=== PATIENT | male | born 1965 | race Caucasian/White ===

== ENCOUNTER → 2016-09-30 | Outpatient (CLI) | payer BC | LOC: COL.CARD 07:27 | DX: I49.9 Cardiac arrhythmia, unspecified (principal); R00.2 Palpitations ==

== ENCOUNTER → 2016-10-06 | Outpatient (CLI) | payer BC | LOC: COL.VAS 09:00 | DX: I08.1 Rheumatic disorders of both mitral and tricuspid valves (principal); I48.91 Unspecified atrial fibrillation ==

== ENCOUNTER 2016-12-20 10:00 | Inpatient (IN) | payer BC ==
[~2016-12-20] VITALS: Ht 177.8 cm; Wt 102.6 kg
[2016-12-21] MEDS ORDERED: ELIQUIS 5MG PO (08:55)
[2016-12-21] MEDS ORDERED: EPIPEN 2-PAK1 MG/ML IM (08:56)
[2016-12-21] MEDS ORDERED: FLONASEALLERGY NS (08:56)
[2016-12-21] MEDS ORDERED: TOPROL XL 25MG25 MG PO (08:57)
[2016-12-21 09:06] VITALS: BP 137/84; PULSE 70; TEMP 98
[2016-12-21 09:32] LABS: BASO % 0.2 % (0.0-2.0); EOS # 0.1 (0.0-0.7); EOS % 1.4 % (0-4.0); GRAN # 4.1 (1.4-6.5); GRAN % 62.1 % (42.2-75.2); HEMATOCRIT 43.2 % (42.0-52.0); HEMOGLOBIN 15.1 g/dl (13.5-18.0); LYMPH # 1.9 (1.2-3.4); LYMPH % 28.4 % (20.0-51.0); MEAN CELL VOLUME 89 fl (80.0-100.0); MEAN CORPUSCULAR HEMOGLOBIN 31 pg (27.0-31.0); MEAN CORPUSCULAR HGB CONC 35 g/dl (33.0-37.0); MEAN PLATELET VOLUME 10.1 fl (7.4-10.4); MONO # 0.5 (0.1-0.6); MONO % 7.4 % (1.7-9.3); PLATELET COUNT 187 K/mm3 (130-400); RED BLOOD COUNT 4.83 M/mm3 (4.20-5.60); WHITE BLOOD COUNT 6.6 K/mm3 (4.8-10.8)
[2016-12-21 09:44] LABS: ALBUMIN 4.1 gm/dL (3.5-5.0); BILIRUBIN,TOTAL 0.8 mg/dL (0.0-1.0); CALCIUM 9.1 mg/dL (8.4-10.2); CREATININE, serum 1.02 mg/dL (0.66-1.25); INR 1.2 (0.8-3.0); MAGNESIUM 1.9 mg/dL (1.6-2.3); POTASSIUM 4.8 mmol/L (3.4-5.0); PROTHROMBIN TIME 13.5 SECONDS (9.7-12.8); TOTAL PROTEIN 6.7 gm/dL (6.4-8.2)
[2016-12-21 11:49] VITALS: BP 128/79; PULSE 59; TEMP 97.9
[2016-12-21 15:44] VITALS: BP 121/65; PULSE 58; TEMP 98
[2016-12-21 19:16] VITALS: BP 105/65; PULSE 58; TEMP 98.4
[2016-12-21 23:03] VITALS: BP 102/64; PULSE 62; TEMP 97.5
[2016-12-22] VITALS (7 sets, daily range): BP systolic 117–172; BP diastolic 76–91; PULSE 53–93; TEMP 97.6–98.4
[2016-12-22 06:46] LABS: BASO % 0.4 % (0.0-2.0); EOS # 0.1 (0.0-0.7); EOS % 1.8 % (0-4.0); GRAN # 4.8 (1.4-6.5); GRAN % 59.8 % (42.2-75.2); HEMATOCRIT 45.3 % (42.0-52.0); HEMOGLOBIN 15.7 g/dl (13.5-18.0); LYMPH # 2.4 (1.2-3.4); LYMPH % 30.5 % (20.0-51.0); MEAN CELL VOLUME 90 fl (80.0-100.0); MEAN CORPUSCULAR HEMOGLOBIN 31 pg (27.0-31.0); MEAN CORPUSCULAR HGB CONC 35 g/dl (33.0-37.0); MEAN PLATELET VOLUME 10.3 fl (7.4-10.4); MONO # 0.6 (0.1-0.6); MONO % 7.1 % (1.7-9.3); PLATELET COUNT 210 K/mm3 (130-400); RED BLOOD COUNT 5.06 M/mm3 (4.20-5.60)
[2016-12-22 06:57] LABS: INR 1.1 (0.8-3.0); PROTHROMBIN TIME 11.7 SECONDS (9.7-12.8)
[2016-12-22 07:01] LABS: CALCIUM 8.8 mg/dL (8.4-10.2); CREATININE, serum 1.02 mg/dL (0.66-1.25)
[2016-12-23 04:29] VITALS: BP 100/49; PULSE 55; TEMP 98.1
[2016-12-23 07:25] LABS: BASO % 0.4 % (0.0-2.0); EOS # 0.1 (0.0-0.7); EOS % 1.7 % (0-4.0); GRAN # 4.4 (1.4-6.5); GRAN % 61.9 % (42.2-75.2); HEMATOCRIT 44.1 % (42.0-52.0); HEMOGLOBIN 15.3 g/dl (13.5-18.0); LYMPH % 27.9 % (20.0-51.0); MEAN CELL VOLUME 89 fl (80.0-100.0); MEAN CORPUSCULAR HEMOGLOBIN 31 pg (27.0-31.0); MEAN CORPUSCULAR HGB CONC 35 g/dl (33.0-37.0); MEAN PLATELET VOLUME 10.4 fl (7.4-10.4); MONO # 0.6 (0.1-0.6); MONO % 7.7 % (1.7-9.3); PLATELET COUNT 183 K/mm3 (130-400); RED BLOOD COUNT 4.97 M/mm3 (4.20-5.60); WHITE BLOOD COUNT 7.2 K/mm3 (4.8-10.8)
[2016-12-23 07:39] LABS: INR 1.1 (0.8-3.0); PROTHROMBIN TIME 12.3 SECONDS (9.7-12.8)
[2016-12-23 07:43] LABS: CALCIUM 8.7 mg/dL (8.4-10.2); CREATININE, serum 1.03 mg/dL (0.66-1.25)
[2016-12-23 08:25] VITALS: BP 127/89; PULSE 51; TEMP 97.4
== END 2016-12-23 10:53 | disposition home or self-care (01) | DRG 310 ==
LOC: MEDICAL 12-21 08:10
PROVIDERS: Internal Medicine Cardiovascular Disease
DX: I48.0 Paroxysmal atrial fibrillation (principal); I10 Essential (primary) hypertension

== ENCOUNTER 2017-03-21 06:55 | Day surgery (SDC) | payer BC ==
[~2017-03-21] VITALS: Ht 177.8 cm; Wt 101.3 kg
[~2017-03-21 06:55] MED LIST: ELIQUIS 5MG PO; EPIPEN 2-PAK1 MG/ML IM; FLONASEALLERGY NS; TOPROL XL 25MG25 MG PO
[2017-03-21 07:16] LABS: HEMATOCRIT 42.7 % (42.0-52.0); MEAN CELL VOLUME 88 fl (80.0-100.0); MEAN CORPUSCULAR HEMOGLOBIN 31 pg (27.0-31.0); MEAN CORPUSCULAR HGB CONC 35 g/dl (33.0-37.0); MEAN PLATELET VOLUME 10.1 fl (7.4-10.4); PLATELET COUNT 192 K/mm3 (130-400); RED BLOOD COUNT 4.87 M/mm3 (4.20-5.60); REDCELL DISTRIBUTION WIDTH-CV 12.4 % (11.5-14.5)
[2017-03-21 07:23] LABS: CREATININE, serum 1.02 mg/dL (0.66-1.25); POTASSIUM 4.2 mmol/L (3.4-5.0)
[2017-03-21 07:26] LABS: INR 1.1 (0.8-3.0); PROTHROMBIN TIME 13.1 SECONDS (9.7-12.8)
[2017-03-21] MEDS ORDERED: BETAPACE160 MG PO (08:06)
[2017-03-21] MEDS ORDERED: ZESTRIL 10MG10 MG PO (08:07)
[2017-03-21 08:16] VITALS: BP 137/98; PULSE 57; TEMP 98
== END 2017-03-21 09:07 | disposition home or self-care (01) ==
LOC: COL.CAR 06:55
PROVIDERS: Internal Medicine Cardiovascular Disease
DX: I48.91 Unspecified atrial fibrillation (principal); Z53.9 Procedure and treatment not carried out, unspecified reason; Z68.32 Body mass index [BMI] 32.0-32.9, adult; Z79.01 Long term (current) use of anticoagulants; I10 Essential (primary) hypertension; J44.9 Chronic obstructive pulmonary disease, unspecified; I25.10 Atherosclerotic heart disease of native coronary artery without angina pectoris; E78.5 Hyperlipidemia, unspecified; Z80.9 Family history of malignant neoplasm, unspecified; Z82.49 Family history of ischemic heart disease and other diseases of the circulatory system; Z80.1 Family history of malignant neoplasm of trachea, bronchus and lung; Z86.010 Personal history of colon polyps; Z87.891 Personal history of nicotine dependence
CPT/HCPCS: J2704

== ENCOUNTER 2020-01-21 16:16 | Emergency (ER) | payer BC ==
[~2020-01-21] VITALS: Ht 177.8 cm; Wt 100.0 kg
[~2020-01-21 16:16] MED LIST changes: +BETAPACE160 MG PO; +ZESTRIL 10MG10 MG PO
[2020-01-21 16:19] VITALS: TEMP 98.3
[2020-01-21] MEDS ORDERED: ASTELIN NASAL S34 ML NS (16:26)
[2020-01-21] MEDS ORDERED: PRINIVIL40 MG PO (16:26)
[2020-01-21 17:05] VITALS: BP 122/89; PULSE 78
== END 2020-01-21 17:10 | disposition home or self-care (01) ==
LOC: COL.ER 16:16
DX: S61.412A Laceration without foreign body of left hand, initial encounter (principal); I16.9 Hypertensive crisis, unspecified; Z23 Encounter for immunization; W26.0XXA Contact with knife, initial encounter; Y93.89 Activity, other specified